=== PATIENT | female | born 1995 | race Caucasian/White ===

== ENCOUNTER 2017-08-18 14:15 | Emergency (ER) | payer MEDICAID, OTHER ==
[~2017-08-18] VITALS: Ht 147.3 cm; Wt 59.4 kg
[2017-08-18 14:22] VITALS: BP 114/67
--- NOTE | 2017-08-18 14:26 | NUR ---
PT AMBULATED TO BED 12.
--- NOTE | 2017-08-18 14:27 | NUR ---
22/F BIB SELF C/O MID ABDOMINAL CRAMPING pain 5/10 NON RADIATING x3 weeks. surgical: appendectomy, cholecystectomy. DENIES N/V/D; SKIN IS PINK/WARM/DRY. AAOX4 WITH EVEN AND STEADY GAIT; LUNGS CLEAR BL; HR EVEN AND REGULAR; PT DENIES ANY FEVER, CP, SOB, OR COUGH AT THIS TIME. PATIENT POSITIONED FOR COMFORT; HOB ELEVATED; BEDRAILS UP X2; BED DOWN. ER MD MADE AWARE OF PT STATUS.
[2017-08-18 15:50] VITALS: BP 118/71
--- NOTE | 2017-08-18 15:50 | NUR ---
Patient discharged with v/s stable. Written and verbal after care instructions given and explained. Patient alert, oriented and verbalized understanding of instructions. Ambulatory with steady gait. All questions addressed prior to discharge. ID band removed. Patient advised to follow up with PMD. Rx of PRILOSEC given. Patient educated on indication of medication including possible reaction and side effects. Opportunity to ask questions provided and answered.
== END 2017-08-18 15:50 | disposition home or self-care (01) ==
LOC: MED 14:15
DX: K29.70 Gastritis, unspecified, without bleeding (principal); Z90.49 Acquired absence of other specified parts of digestive tract
CPT/HCPCS: 81002; 81025; 99283

== ENCOUNTER 2018-12-14 22:18 | Emergency (ER) | payer SELFPAY ==
[~2018-12-14] VITALS: Ht 149.9 cm; Wt 64.4 kg
[2018-12-14 22:27] VITALS: BP 128/87
--- NOTE | 2018-12-14 22:31 | NUR ---
PT TO GIVE URINE SAMPLE, VSS, AMBULATORY TO ER LOBBY.
--- NOTE | 2018-12-14 23:32 | NUR ---
PT AMBULATED TO BED #10
--- NOTE | 2018-12-15 00:15 | NUR ---
PT BIB SELF FOR ABD PAIN W/ DIARRHEA. PT STATE SHE HAS INTERMITTENT PAIN GENERLAIZED TO ABD THAT IS WORSE WHEN SHE EATS AND FEELS BURNING SENSATION TO LEFT LOWER ABD. ABD IS SOFT, NON TENDER, ACTIVE BS X4. PT STATES SHE HAS HAD HER GALLBLADDER AND APPENDIX REMOVED. PT AWAKE AND ALERT, LAYING IN BED POSITIONED TO COMFORT.
--- NOTE | 2018-12-15 00:26 | NUR ---
DR RODRÍGUEZ AT BEDSIDE TO EVALUATE PT.
[2018-12-15 00:46] LABS: APPEARANCE,URINE CLEAR (CLEAR); BILIRUBIN,URINE NEGATIVE (NEGATIVE); BLOOD, URINE 1+ (NEGATIVE); COLOR,URINE YELLOW (YELLOW); LEUKOCYTE ESTERASE ,URINE 2+ (NEGATIVE); NITRITE, URINE NEGATIVE (NEGATIVE); UGLUCOSE NEGATIVE (NEGATIVE)
[2018-12-15 00:47] LABS: BASOPHILS % (AUTO) 0.4 % (0.0-2.0); EOSINOPHILS # (AUTO) 0.1 K/uL (0-0.4); EOSINOPHILS % (AUTO) 0.8 % (0.0-4.0); HEMATOCRIT 37.9 % (36-48); HEMOGLOBIN 12.6 g/dL (12.0-16.0); LYMPHOCYTES # (AUTO) 3.6 K/uL (2.5-16.5); LYMPHOCYTES % (AUTO) 36.7 % (20.5-51.1); MEAN CORPUSCULAR HEMOGLOBIN 30 pg (27-31); MEAN CORPUSCULAR HGB CONC 33 g/dL (33-37); MEAN CORPUSCULAR VOLUME 90.7 fL (80-94); MONOCYTES # (AUTO) 0.8 K/uL (0.8-1.0); MONOCYTES % (AUTO) 8.4 % (1.7-9.3); NEUTROPHILS # (AUTO) 5.2 K/uL (1.8-7.7); NEUTROPHILS % (AUTO) 53.7 % (42.2-75.2); PLATELET COUNT (AUTO) 329 K/uL (140-450); RED BLOOD CELL COUNT(AUTO) 4.18 MIL/uL (4.20-5.40); RED CELL DISTRIBUTION WIDTH 13.8 % (11.6-13.7); WHITE BLOOD COUNT (AUTO) 9.7 K/uL (4.8-10.8)
[2018-12-15 00:58] LABS: RBC,URINE 0-5 /HPF (0-5)
[2018-12-15 00:59] LABS: ANION GAP 10.2 (8-16); CARBON DIOXIDE 29.5 mmol/L (21-32); CREATININE 0.7 mg/dL (0.6-1.3); POTASSIUM 3.7 mmol/L (3.5-5.1)
[2018-12-15 01:02] LABS: ALBUMIN 3.5 g/dL (3.4-5.0); TOTAL BILIRUBIN 0.2 mg/dL (0.0-1.0)
[2018-12-15 02:03] VITALS: BP 128/82
--- NOTE | 2018-12-15 02:03 | NUR ---
Patient discharged with v/s stable. Written and verbal after care instructions given and explained. ENCOURAGED TO DRINK WATER AND CRANBERRY JUICE. Patient alert, oriented and verbalized understanding of instructions. Ambulatory with steady gait. All questions addressed prior to discharge. ID band removed. Patient advised to follow up with PMD. Rx of KEFLEX WAS given. Patient educated on indication of medication including possible reaction and side effects. Opportunity to ask questions provided and answered.
== END 2018-12-15 02:02 | disposition home or self-care (01) ==
LOC: MED 22:18
DX: N39.0 Urinary tract infection, site not specified (principal); R19.7 Diarrhea, unspecified; Z90.49 Acquired absence of other specified parts of digestive tract
CPT/HCPCS: 36415; 76856; 80053; 81001; 81025; 83690; 85025; 87086; 93976; 99284; Q0092